=== PATIENT | female | born 1935 | race Hispanic/Latino ===

== ENCOUNTER 2021-11-06 13:22 | Outpatient (RCR) | payer MEDICARE ==
[2021-10-23 17:02] LABS: BASOPHILS % 0.3 % (0.0-1.0); EOSINOPHILS # (AUTO) 0.1 (0.0-0.4); EOSINOPHILS % 2.3 % (0.0-6.0); HEMATOCRIT 26.9 % (34.2-44.1); HEMOGLOBIN 7.9 g/dL (12.0-16.0); LYMPHOCYTES # (AUTO) 1.2 (1.0-3.2); LYMPHOCYTES % 19.6 % (18.0-39.1); MEAN CORPUSCULAR HEMOGLOBIN 26.8 pg (28-32); MEAN CORPUSCULAR HGB CONC 29.4 g/dL (31-35); MEAN CORPUSCULAR VOLUME 91.2 fL (81-99); MONOCYTES # (AUTO) 0.5 (0.2-0.8); NEUTROPHILS # (AUTO) 4.3 (2.1-6.9); NEUTROPHILS % 69.5 % (38.7-80.0); PLATELET COUNT 282 x10e3/uL (140-360); RED BLOOD COUNT 2.95 x10e6/uL (3.6-5.1); RED CELL DISTRIBUTION WIDTH 15.7 % (11.7-14.4)
[2021-10-23 17:24] LABS: ALBUMIN 3.2 g/dL (3.5-5.0); ANION GAP 13.2 mmol/L (8-16); CALCIUM 8.2 mg/dL (8.4-10.2); CREATININE, SERUM 1.15 mg/dL (0.57-1.11); POTASSIUM 4.2 mmol/L (3.5-5.1)
[2021-10-23 19:28] LABS: HYPOCHROMASIA MARKED; PLATELET ESTIMATE ADEQUATE; PLATELET MORPHOLOGY COMMENT NORMAL
[~2021-11-06 13:22] MED LIST: LIDOCAINE/PRILOCAINE 2.5-2.5% KIT ONE
== END 2021-11-15 ==
LOC: WCC 13:22
PROVIDERS: ATTEND Podiatrist
DX: E78.5 Hyperlipidemia, unspecified (principal); F03.91 Unspecified dementia, unspecified severity, with behavioral disturbance; N18.30 Chronic kidney disease, stage 3 unspecified; I10 Essential (primary) hypertension; S90.821A Blister (nonthermal), right foot, initial encounter; K21.9 Gastro-esophageal reflux disease without esophagitis; M81.6 Localized osteoporosis [Lequesne]; R32 Unspecified urinary incontinence; Z74.01 Bed confinement status
CPT/HCPCS: 10060; 36415; 80053; 84134; 85025; 85651; 86141; 87071; 87075; 87205

== ENCOUNTER 2021-12-11 12:58 | Outpatient (RCR) | payer MEDICARE ==
[~2021-12-11 12:58] MED LIST changes: +COLLAGENASE OINTMENT 30 GM TUBE ONE
== END 2021-12-16 ==
LOC: WCC 12:58
PROVIDERS: ATTEND Podiatrist
DX: L89.610 Pressure ulcer of right heel, unstageable (principal); S90.821A Blister (nonthermal), right foot, initial encounter; F03.91 Unspecified dementia, unspecified severity, with behavioral disturbance; N18.30 Chronic kidney disease, stage 3 unspecified; I10 Essential (primary) hypertension; E78.5 Hyperlipidemia, unspecified; K21.9 Gastro-esophageal reflux disease without esophagitis; M81.6 Localized osteoporosis [Lequesne]; R32 Unspecified urinary incontinence; Z74.01 Bed confinement status

== ENCOUNTER 2022-01-01 13:30 | Outpatient (RCR) | payer MEDICARE ==
[~2022-01-01 13:30] MED LIST changes: -LIDOCAINE/PRILOCAINE 2.5-2.5% KIT ONE
== END 2022-01-13 ==
LOC: WCC 13:30
PROVIDERS: ATTEND Podiatrist
DX: L89.610 Pressure ulcer of right heel, unstageable (principal); F03.91 Unspecified dementia, unspecified severity, with behavioral disturbance; N18.30 Chronic kidney disease, stage 3 unspecified; I10 Essential (primary) hypertension; E78.5 Hyperlipidemia, unspecified; K21.9 Gastro-esophageal reflux disease without esophagitis; M81.6 Localized osteoporosis [Lequesne]; R32 Unspecified urinary incontinence; Z74.01 Bed confinement status

== ENCOUNTER 2022-02-12 14:23 | Outpatient (RCR) | payer MEDICARE ==
[2022-02-05 17:28] LABS: BASOPHILS % 0.9 % (0.0-1.0); EOSINOPHILS # (AUTO) 0.1 (0.0-0.4); HEMATOCRIT 34.4 % (34.2-44.1); HEMOGLOBIN 10.6 g/dL (12.0-16.0); LYMPHOCYTES # (AUTO) 1.4 (1.0-3.2); LYMPHOCYTES % 30.3 % (18.0-39.1); MEAN CORPUSCULAR HEMOGLOBIN 26.8 pg (28-32); MEAN CORPUSCULAR HGB CONC 30.8 g/dL (31-35); MEAN CORPUSCULAR VOLUME 87.1 fL (81-99); MONOCYTES # (AUTO) 0.5 (0.2-0.8); MONOCYTES % 10.6 % (4.4-11.3); NEUTROPHILS # (AUTO) 2.5 (2.1-6.9); PLATELET COUNT 306 x10e3/uL (140-360); RED BLOOD COUNT 3.95 x10e6/uL (3.6-5.1); RED CELL DISTRIBUTION WIDTH 17.5 % (11.7-14.4)
[2022-02-05 17:39] LABS: ALBUMIN 3.5 g/dL (3.5-5.0); ALBUMIN/GLOBULIN RATIO 1.3 (0.8-2.0); ANION GAP 12.4 mmol/L (8-16); CREATININE, SERUM 1.26 mg/dL (0.57-1.11); POTASSIUM 4.4 mmol/L (3.5-5.1)
== END 2022-02-13 ==
LOC: WCC 14:23
PROVIDERS: ATTEND Podiatrist
DX: L89.612 Pressure ulcer of right heel, stage 2 (principal); L89.610 Pressure ulcer of right heel, unstageable; N18.30 Chronic kidney disease, stage 3 unspecified; I10 Essential (primary) hypertension; E78.5 Hyperlipidemia, unspecified; F03.91 Unspecified dementia, unspecified severity, with behavioral disturbance; K21.9 Gastro-esophageal reflux disease without esophagitis; M81.6 Localized osteoporosis [Lequesne]; R32 Unspecified urinary incontinence; Z74.01 Bed confinement status
CPT/HCPCS: 11042 ×2; 15275; 36415; 80053; 84134; 85025; 85651; 86141; 97602 ×2; 99213; Q4101

== ENCOUNTER 2022-03-12 15:33 | Outpatient (RCR) | payer MEDICARE ==
[~2022-03-12 15:33] MED LIST changes: -COLLAGENASE OINTMENT 30 GM TUBE ONE; +GENTAMICIN SULFATE 15 GM CR TP ONE; +LIDOCAINE/PRILOCAINE 2.5-2.5% KIT ONE
== END 2022-03-15 ==
LOC: WCC 15:33
PROVIDERS: ATTEND Podiatrist
DX: L89.612 Pressure ulcer of right heel, stage 2 (principal); N18.30 Chronic kidney disease, stage 3 unspecified; I10 Essential (primary) hypertension; F03.91 Unspecified dementia, unspecified severity, with behavioral disturbance; E78.5 Hyperlipidemia, unspecified; R32 Unspecified urinary incontinence; M81.6 Localized osteoporosis [Lequesne]; K21.9 Gastro-esophageal reflux disease without esophagitis; Z74.01 Bed confinement status
CPT/HCPCS: 15275 ×4; 99213; Q4101 ×4

== ENCOUNTER 2022-04-02 16:26 | Outpatient (RCR) | payer MEDICARE ==
[~2022-04-02 16:26] MED LIST changes: -LIDOCAINE/PRILOCAINE 2.5-2.5% KIT ONE
== END 2022-04-15 ==
LOC: WCC 16:26
PROVIDERS: ATTEND Podiatrist
DX: L89.612 Pressure ulcer of right heel, stage 2 (principal); E78.5 Hyperlipidemia, unspecified; I10 Essential (primary) hypertension; F03.91 Unspecified dementia, unspecified severity, with behavioral disturbance; K21.9 Gastro-esophageal reflux disease without esophagitis; M81.6 Localized osteoporosis [Lequesne]; N18.30 Chronic kidney disease, stage 3 unspecified; R32 Unspecified urinary incontinence; Z74.01 Bed confinement status

== ENCOUNTER 2022-04-16 14:56 | Outpatient (RCR) | payer MEDICARE | END 2022-05-15 | LOC: WCC 14:56 | PROVIDERS: ATTEND Podiatrist | DX: L89.612 Pressure ulcer of right heel, stage 2 (principal); F03.91 Unspecified dementia, unspecified severity, with behavioral disturbance; N18.30 Chronic kidney disease, stage 3 unspecified; I10 Essential (primary) hypertension; E78.5 Hyperlipidemia, unspecified; K21.9 Gastro-esophageal reflux disease without esophagitis; M81.6 Localized osteoporosis [Lequesne]; R32 Unspecified urinary incontinence; Z74.01 Bed confinement status ==